=== PATIENT | female | born 1995 | race Caucasian/White ===

== ENCOUNTER 2019-11-10 12:25 | Emergency (ER) | payer SELFPAY ==
[~2019-11-10] VITALS: Ht 157.5 cm; Wt 61.2 kg
[~2019-11-10 12:25] MED LIST: BISA5TAB; EXLAX; ONDA4TAB7; STOOL SOFTNER
[2019-11-10] MEDS ORDERED: OXYcodone/APAP 5/325MG TABLET ONE (13:13)
[2019-11-10] MEDS ORDERED: OXYcodone/APAP 5/325MG TABLET PO ONE (14:00)
[2019-11-10 15:25] VITALS: BP 124/78
== END 2019-11-10 15:27 | disposition home or self-care (01) ==
LOC: ED 13:23
DX: S50.12XA Contusion of left forearm, initial encounter (principal); X58.XXXA Exposure to other specified factors, initial encounter; Y93.89 Activity, other specified; Y92.009 Unspecified place in unspecified non-institutional (private) residence as the place of occurrence of the external cause; Y99.8 Other external cause status
CPT/HCPCS: 29105; 99284